=== PATIENT | male | born 1990 | race Caucasian/White ===

== ENCOUNTER 2020-10-28 11:16 | Outpatient (CLI) | payer BC, SELFPAY ==
--- NOTE | 2020-11-29 08:32 | WPDHOLTEREM ---
Holter/Event Monitor Holter/Event Monitor Date of procedure: 10/28/20 Procedure Type: Event monitor Indications: Palpitations Conclusion: 1. 22 days event monitor between 10/28/20-11/27/20. There are 21 available transmissions for analysis. 2. Predominant rhythm is sinus rhythm. HR range 46-225 bpm; average HR 74 bpm. 3. There are occasional premature supraventricular complexes with total burden of <1%. No supraventricular tachycardia. 4. There are occasional premature ventricular complexes with total burden of <1%. One episode of ventricular tachycardia at 225 bpm lasting 4 beats on 11/19/20 at 14:08. 5. No significant pauses greater than 2 seconds. 6. Patient reports 2 episodes of symptoms of chest pain and symptom other than listed which demonstrate Sinus rhythm, HR range 77-103 bpm.
== END 2020-10-28 11:17 | disposition home or self-care (01) ==
PROVIDERS: PCP Internal Medicine; Visit Provider Internal Medicine
DX: R00.2 Palpitations (principal); R00.0 Tachycardia, unspecified
CPT/HCPCS: 93270

== ENCOUNTER 2021-01-17 15:57 | Outpatient (CLI) | payer BC, SELFPAY ==
--- NOTE | ~2021-01-17 | XR_ITS ---
EXAMINATION: XR shoulder LT min 2V INDICATION: Left shoulder pain TECHNIQUE: Four views of the left shoulder are obtained on five radiographs. COMPARISON: None FINDINGS: Normal alignment. No fracture. Glenohumeral and acromioclavicular joint spaces are normal. Soft tissues are unremarkable. IMPRESSION: 1. No acute osseous abnormality. Reviewed, dictated and finalized at location A. UCTION SOLDERER
== END 2021-01-17 15:58 | disposition home or self-care (01) ==
LOC: CHSIMG 15:58
PROVIDERS: PCP Internal Medicine; Visit Provider Nurse Practitioner Family
DX: M25.512 Pain in left shoulder (principal)
CPT/HCPCS: 73030

== ENCOUNTER 2022-04-06 00:41 | Day surgery (SDC) | payer BC, SELFPAY ==
[2022-03-31 08:31] VITALS: BMI 26.6
[2022-04-06 08:03] VITALS: BP 124/84; PULSE 65; RESP 20; TEMP 36.3; O2SAT 100
[2022-04-06] MEDS: LACTATED RINGERS 1,000 ML 150 ML IV CONT (08:09)
--- NOTE | 2022-04-06 08:21 | WPDANESEPPF ---
Anes - Initial Pre Proc Eval Procedure: Operation Date: 04/06/22 09:15 Proposed Procedures p Esophagogastroduodenoscopy - Chris Ponce MD Date/Time: 04/06/22 08:21 Surgeon: Chris Ponce MD Pre Op Diagnosis: GERD Patient Data Age: 31 Gender: M Height: 1.8 m Weight: 84.5 kg Last Vital Signs Temp 36.3 C L 04/06/22 08:03 Pulse 65 04/06/22 08:03 Resp 20 04/06/22 08:03 BP 124/84 04/06/22 08:03 Pulse Ox 100 04/06/22 08:03 Allergies Allergy/AdvReac Type Severity Reaction Status Date / Time Penicillins Allergy Mild Rash Verified 04/06/22 08:01 Home Medications Medication Instructions Recorded Confirmed Type omeprazole 20 mg capsule,delayed 20 mg PO DAILY #30 cap 11/04/21 04/06/22 Rx release Patient hx anesthesia problems: none Family hx anesthesia problems: none Results Review: All pre-operative results and documents have been reviewed as part of the pre-operative evaluation. [facility] Family History Family History Father Hypertension Depression Mother Depression Sibling Depression Social History Social History Smoking packs per day: 0.5 Smoking cigarettes per day: 10.0 Years smoked: 13 Smoking pack-years: 6.50 Smoking status: Current every day smoker Tobacco type: cigarettes Alcohol intake: current Alcohol use details: occasional Substance use: never Substance use type: does not use Living arrangements: with family Spiritual care concerns: No Anes - Eval Final PreProcedure Day of Procedure 04/06/22 08:21 Patient weight: overweight Heart: regular rate and rhythm Lungs: clear to auscultation and normal air movement Airway: Mallampati scale class II Neurological: alert and oriented Last oral intake: >/= 8 hours ASA classification: II Emergent: no Anesthetic plan: proceed Anesthesia type and monitoring: general GIVS Results Review: All pre-operative results and documents have been reviewed as part of the pre-operative evaluation. Informed Consent: The patient's anesthetic plan and its attendant risks and benefits were discussed with the patient/family/POA. Questions were solicited and answers provided to the satisfaction of the patient/family/POA.
--- NOTE | 2022-04-06 08:38 | WPDGICN ---
Assessment and Plan Assessment and plan (1) GERD (gastroesophageal reflux disease): Code(s): K21.9 - Gastro-esophageal reflux disease without esophagitis Status: Acute Assessment and Plan: Patient has symptoms suspicious for acid reflux with substernal burning. , intermittent dysphagia. He has had ENT finding suspicious for acid reflux. Symptoms have improved on taking omeprazole 20mg p.o. daily. However he typically takes the medicine intermittently. Plan is for EGD to assess his upper GI tract. We discussed anti-reflux measures including elevating head of bed at night no late snacks and likely he will do better taking omeprazole 20mg p.o. daily before breakfast. GI Consult Note Consult date/time: 04/06/22 08:38 HPI: Harsh Haddad is a 31 year old male Presents for EGD. Patient has a history of heartburn with substernal burning and regurgitation for several years. He additionally has felt to have pain in his back apparently attributed to acid reflux in the past. He was seen by ENT because of ear pain and felt to have pharyngeal irritation suspicious for acid reflux. Patient initially given a trial of ranitidine. This failed to control his symptoms. Patient has been on omeprazole since the end of 2020. This has helped improve his substernal burning pain. Additionally his other symptoms have improved as well. He has been somewhat intermittent in the use of this medication. He has occasional dysphagia with food catching in the mid substernal portion of the chest he notes that this occurs off and on. Patient denies any bleeding or weight loss. He presents today for EGD. Review of Systems Review of Systems: All systems reviewed & are unremarkable except as noted in HPI and below [facility] Family History Family History Father Hypertension Depression Mother Depression Sibling Depression Social History Social History Smoking packs per day: 0.5 Smoking cigarettes per day: 10.0 Years smoked: 13 Smoking pack-years: 6.50 Smoking status: Current every day smoker Tobacco type: cigarettes Alcohol intake: current Alcohol use details: occasional Substance use: never Substance use type: does not use Living arrangements: with family Spiritual care concerns: No Meds Home Medications and Allergies Home Medications Medication Instructions Recorded Confirmed Type omeprazole 20 mg capsule,delayed 20 mg PO DAILY #30 cap 11/04/21 04/06/22 Rx release Allergies Allergy/AdvReac Type Severity Reaction Status Date / Time Penicillins Allergy Mild Rash Verified 04/06/22 08:01 Vital Signs Vital Signs - 24 hr 04/06/22 08:03 Temperature 97.4 F L Pulse Rate 65 Respiratory Rate 20 Blood Pressure 124/84 Pulse Oximetry 100 Exam Narrative: Physical exam reveals patient to be alert. Vital signs stable. HEENT exam is unremarkable. Patient is anicteric. Lungs are clear to auscultation and percussion. Heart is without murmur or extra sounds. Abdominal exam bowel sounds are present soft nontender with no organomegaly. Digital external rectal exam is normal.
[2022-04-06] MEDS: BENZOCAINE (*SP) 60 ML SPRAY CAN (HURRICAINE) 1 SPRAY MUCOUS MEM (09:16)
[2022-04-06 09:23] VITALS: BP 105/76; PULSE 76; RESP 20; O2SAT 99
[2022-04-06 09:33] VITALS: BP 110/71; PULSE 70; RESP 24; O2SAT 99
[2022-04-06 09:43] VITALS: BP 127/80; PULSE 58; RESP 20; O2SAT 99
== END 2022-04-06 09:50 | disposition home or self-care (01) ==
PROVIDERS: PCP Internal Medicine; Visit Provider Internal Medicine Gastroenterology
PROC: 0DJ08ZZ Inspection of Upper Intestinal Tract, Via Natural or Artificial Opening Endoscopic (ICD-10-PCS; CPT 43235; principal; 2022-04-06 09:15)
DX: K21.9 Gastro-esophageal reflux disease without esophagitis (principal); F17.210 Nicotine dependence, cigarettes, uncomplicated
CPT/HCPCS: 43239; 87081; J2704; J7120

== ENCOUNTER 2024-01-22 16:21 | Emergency (ER) | payer BC, SELFPAY ==
--- NOTE | ~2024-01-22 | XR_ITS ---
EXAMINATION: XR chest 2V DATE: 01/22/2024 16:51 INDICATION: Back pain TECHNIQUE: PA and lateral views of the chest are obtained. COMPARISON: 03/04/2008 FINDINGS: The lungs are free of acute opacities. No pleural effusion or pneumothorax. The cardiomedia stinal silhouette is normal. There is mild thoracic spondylosis. IMPRESSION: 1. No acute cardiopulmonary abnormality. Reviewed, dictated and finalized at location L. [employer] SCIENCE TECHNICIAN
[2024-01-22 16:26] VITALS: BP 134/98; PULSE 80; RESP 19; TEMP 36.7; O2SAT 98
--- NOTE | 2024-01-22 16:27 | ED.URI ---
HPI - URI/Sore Throat General Chief Complaint: Upper Respiratory Infection Stated Complaint: respiratory issues Time Seen by Provider: 01/22/24 16:26 Source: patient Mode of arrival: ambulatory Limitations: no limitations History of Present Illness HPI Narrative: Patient is a 33-year-old male with some back pain thoracic region on and off for many months. He has been seeing his primary doctor for this complaint. They initially been working on GERD. He did some yd work yesterday and this started since that event. The GERD medication has been helpful but he stopped the medicine. pain initially got up to an 8 but it is down to like a 1 or a 2 now. After he took home ibuprofen. Pertinent past history: other ( Recurrent and chronic back pain in the same place on and off for many months but it goes away at times) Onset (ago): day(s) (1) Consistency: intermittent Severity: mild Pain scale (0-10): 2 Able to tolerate fluids by mouth: Yes Exacerbating factors: changing head position and deep breaths Relieving factors: NSAID Associated symptoms: denies other symptoms Treatments prior to arrival: ibuprofen Related Data Allergies Allergy/AdvReac Type Severity Reaction Status Date / Time Penicillins Allergy Mild Rash Verified 01/22/24 16:24 Review of Systems Review of Systems: All systems reviewed & are unremarkable except as noted in HPI and below Constitutional: Constitutional: Reports no additional constitutional complaints Eyes: Eyes: Reports no additional eye complaints ENT: Reports system reviewed and no additional complaints, except as documented Cardiovascular: Cardiovascular: Reports no additional cardiovascular complaints Respiratory: Respiratory: Reports no additional respiratory complaints Gastrointestinal: Gastrointestinal: Reports no additional gastrointestinal complaints Genitourinary: Genitourinary: Reports no additional male genitourinary complaints Musculoskeletal: Musculoskeletal: Reports no additional musculoskeletal complaints Integumentary/Breasts: Skin/Breast: Reports system reviewed and no additional complaints, except as docu Neurologic: Reports system reviewed and no additional complaints, except as documented Psychiatric: Psychiatric: Reports no additional psychiatric complaints Endocrine: Endocrine: Reports no additional endocrine complaints Hematologic/Lymphatic: Hematologic/Lymphatic: Reports no additional hematologic/lymphatic complaints Allergic/Immunologic: Allergic/Immunologic: Reports no additional allergic/immunologic complaints PMFSH Family History Family History Father Hypertension Depression Mother Depression Sibling Depression Social History Social History Smoking packs per day: 0.5 Smoking cigarettes per day: 10.0 Years smoked: 13 Smoking pack-years: 6.50 Smoking status: Current every day smoker Tobacco type: cigarettes Alcohol intake: current Alcohol use details: occasional Substance use: never Substance use type: does not use Living arrangements: with family Spiritual care concerns: No Exam Const: General: healthy appearing Nutritional Appearance: well nourished Orientation/consciousness: patient oriented x3 HENMT: Head: normal to inspection Ears: external ears normal Face/Nose/Sinus: Normal external nose present Eyes: Conjunctivae: conjunctivae normal Pupils: Equal, round and reactive pupils present EOM: EOMs intact bilaterally Neck: Neck: normal visual inspection Chest: Chest palpation & inspection: normal inspection of the chest Resp: Effort & Inspection: normal respiratory effort and not labored Auscultation: clear to auscultation bilaterally and no crackles Cardio: Rate: regular rate Rhythm: regular rhythm Heart sounds: no murmurs GI: Inspection: non-distended GI Palp: Yes Soft to palpation and No Tenderne
--- NOTE | 2024-01-22 16:45 | PC.NURSE ---
pt declines medication injection at this time. 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 2/10 on pain scale at this time.
[2024-01-22 17:55] VITALS: BP 138/90; PULSE 72; RESP 18; O2SAT 99
== END 2024-01-22 17:55 | disposition home or self-care (01) ==
PROVIDERS: Emergency Provider Emergency Medicine; PCP Internal Medicine
DX: M54.6 Pain in thoracic spine (principal); F17.210 Nicotine dependence, cigarettes, uncomplicated
CPT/HCPCS: 71046; 99283

== ENCOUNTER 2024-05-09 12:51 | Outpatient (CLI) | payer BC, SELFPAY ==
--- NOTE | ~2024-05-09 | CT_ITS ---
EXAMINATION: CT chest abdomen w con DATE: 05/09/2024 13:27 INDICATION: Gastroesophageal reflux disease. Right chest and back pain. TECHNIQUE: Computed tomography (CT) of the chest and abdomen was performed with 100 mL Omnipaque 350 intravenous contrast. Automated exposure control and iterative reconstruction technique were employed . The dose-length product was 488.39 mGy-cm. COMPARISON: None FINDINGS: CHEST CT: There is mild scarring at the lung apices. There is mild atelectasis bilaterally. No pleural effusion . The heart size is normal. No pericardial effusion. There is a small sliding hiatal hernia. ABDOMEN CT: There is diffuse hepatic steatosis. The gallbladder, spleen, pancreas, adrenal glands, and kidneys ar e normal. There are no dilated loops of bowel. There are no pathologically enlarged lymph nodes. Ther e is no free intraperitoneal fluid. The bones are unremarkable. IMPRESSION: 1. Small sliding hiatal hernia. 2. Diffuse hepatic steatosis. Reviewed, dictated and finalized at location E.
== END 2024-05-09 12:52 | disposition home or self-care (01) ==
LOC: CHSIMG 12:55
PROVIDERS: PCP Internal Medicine; Visit Provider Nurse Practitioner Family
DX: K21.9 Gastro-esophageal reflux disease without esophagitis (principal); R06.6 Hiccough; K44.9 Diaphragmatic hernia without obstruction or gangrene; K76.0 Fatty (change of) liver, not elsewhere classified
CPT/HCPCS: 71260; 74160; Q9967

== ENCOUNTER 2024-11-08 11:45 | Emergency (ER) | payer BC, SELFPAY ==
--- NOTE | 2024-11-08 11:50 | ED.URI ---
HPI - URI/Sore Throat General Chief Complaint: Upper Respiratory Infection Stated Complaint: Sore Throat/[place] [facility] Time Seen by Provider: 11/08/24 12:35 Source: patient and RN notes reviewed Mode of arrival: ambulatory Limitations: no limitations History of Present Illness HPI Narrative: 34-year-old male presents with concern for fever, aches, sore throat nasal drainage and headache that started 4 days ago after he traveled. He reports he also had piece of food Fling in his left eye last night and he got it out, he woke up this morning with redness and drainage from the eye. Reports mild discomfort from the eye, denies vision changes MD elicited complaint: fever and other (eye) Related Data Allergies Allergy/AdvReac Type Severity Reaction Status Date / Time Penicillins Allergy Mild Rash Verified 11/08/24 12:10 Review of Systems Review of Systems: CONSTITUTIONAL: Denies malaise, chills, sweats, or fever. EYES: Denies visual changes reports left eye irritation, redness and discharge ENT: Reports rhinorrhea, congestion, and sore throat. CARDIOVASCULAR: Denies chest pain, palpitations, or edema. RESPIRATORY: Reports cough. Denies dyspnea. GASTROINTESTINAL: Denies abdominal pain, nausea, vomiting, diarrhea SKIN: Denies rash or itching. MUSCULOSKELETAL: Reports myalgia. NEUROLOGIC: Reports headache. All systems reviewed & are unremarkable except as noted in HPI and below PMFSH Past Medical History Medical History (Updated 11/08/24 @ 12:46 by Sarika Brambila NP) Sliding hiatal hernia Family History Family History Father Hypertension Depression Mother Depression Sibling Depression Social History Social History Smoking packs per day: 0.5 Smoking cigarettes per day: 10.0 Years smoked: 13 Smoking pack-years: 6.50 Smoking status: Current every day smoker Tobacco type: cigarettes Alcohol intake: current Alcohol use details: occasional Substance use: never Substance use type: does not use Living arrangements: with family Spiritual care concerns: No Comments At time of signature, agree with nursing past medical, surgical, social and family history. There is no relevant family history pertinent to the presenting complaint Exam Narrative: GENERAL: Well-appearing, well-nourished, and in no acute distress. HEAD: Normocephalic EYES: PERRLA. Left sclera and conjunctiva injected ENT: Nares clear. Mucous membranes moist. TM pearly valdez with dull light reflex bilaterally; no tragal tenderness. Oropharynx not erythematous without lesions. Tonsils not enlarged and without exudate, no drooling, no hoarseness, no trismus, uvula midline. NECK: Supple. No lymphadenopathy CHEST: Clear to auscultation, breath sounds equal. No wheezing, rhonchi, rales, or stridor. No respiratory distress, speaks in full sentences. HEART: Regular rate and rhythm. No murmur heard. SKIN: Warm, dry, no rash. NEURO: Alert and oriented x3. PSYCH: Normal mood and affect Course Course Emergency Course: Patient is aware of diagnosis, understands and agrees to treatment plan. Anticipatory guidance given. Patient agrees to follow-up as directed and is aware of reasons to seek care at the emergency department. Portions of this record may have been created with voice recognition software Level of Care: Express Care Visit Vital Signs Vital signs: Reviewed. MDM - URI/Sore Throat MDM Narrative Medical decision making narrative: Differential diagnosis considered: Mcclelland virus, strep pharyngitis, allergic rhinitis, upper respiratory tract infection, sinusitis, rhinosinusitis, nasopharyngitis. viral pharyngitis, otitis media, otitis externa, pneumonia, bronchitis, viral cough syndrome, viral syndrome, and influenza. Exam findings show no acute concerns or changes; patient is non-toxic appearing and is in no distress. Patient is appropriate for outpatient treatment and follow-up. Lab Data Attestation: I reviewed the patient's lab results. Critical Care Time Critical Care Time Critical Care Time: No Discharge Plan Discharge Clinical Impression: Influenza A, Abrasion, corneal Patient Disposition: Home, Self-Care Condition: Stable Instructions: How to Use Eye Drops (ED), Influenza (ED) Additional Instructions: -Take strict precautions to prevent the spread of your virus. Be diligent about covering your cough (even when you are alone) and washing your hands frequently. -You may contagious until you have been symptom and/or fever free for 24 hours without fever reducing medicine -Alternate Ibuprofen and Tylenol for pain and fever relief (per package directions) -Drink plenty of fluid - drink fluid with electrolytes such as Gatorade or other oral re-hydration solution. Avoid caffeine, which can make dehydration worse. -Get plenty of rest to help your body heal. -Use a cool mist humidifier for chest and nasal congestion. -Eat RAW honey or use cough drops to ease throat discomfort -Do not smoke or expose children to secondhand smoke -Wash your hands frequently. -Please follow-up with your primary care doctor in the next 1-2 days if your symptoms do not improve. -If you have any worsening of symptoms or any other concerns please go to the ED immediately. -Please take medications as prescribed and continue taking your home medications as usual. Patient Language: Chinese Prescriptions: New polymyxin B sulf-trimethoprim 10,000 unit- 1 mg/mL drops 1 drp LEFT EYE Q3H 7 Days Qty: 10 0RF Rx Instructions: while awake; do not exceed 6 doses in 24 hours No Action omeprazole 20 mg capsule,delayed release(DR/EC) 20 mg PO DAILY Qty: 90 3RF Follow-up/Referrals: Apolinar Barnett MD [Primary Care Provider] - Time of Disposition: 12:47
[2024-11-08 11:57] VITALS: BP 125/91; PULSE 68; RESP 19; TEMP 36.9; O2SAT 100
[2024-11-08 12:18] LABS: EDCOVIDSCREEN Negative (Negative); EDINFLUASCREEN Positive (Negative); EDINFLUBSCREEN Negative (Negative); EDSTREPNEGPOS1 Negative (Negative)
== END 2024-11-08 12:51 | disposition home or self-care (01) ==
PROVIDERS: Emergency Provider Nurse Practitioner; PCP Internal Medicine
DX: J10.1 Influenza due to other identified influenza virus with other respiratory manifestations (principal); S05.02XA Injury of conjunctiva and corneal abrasion without foreign body, left eye, initial encounter; F17.210 Nicotine dependence, cigarettes, uncomplicated; W22.8XXA Striking against or struck by other objects, initial encounter; Z20.822 Contact with and (suspected) exposure to COVID-19
CPT/HCPCS: 87081; 87426; 87804; 87880; 99213; G0463